=== PATIENT | female | born 1975 | race Two or more races ===

== ENCOUNTER 2017-01-05 00:05 | Emergency (ER) | payer OTHER, SELFPAY ==
[~2017-01-05 00:05] MED LIST: ALBUTEROL SULF8.5 GM IH; ALBUTEROL17 GM; ALBUTEROL17 GM INH; ANUSOL-HC25 MG/SUPP RC; CIPRO500 MG PO; CLARITIN10 MG PO; FLEXERIL10 MG PO; LANTUS100 U/ML SC; LEVEMIR100 U/ML SQ; LORTAB 5/500 TA1 TAB PO; METFORMIN HCL850 MG PO; MOTRIN600 MG PO; MOTRIN800 MG PO; NORCO 5/325 TAB1 TAB PO; PERCOCET 5/3251 TAB PO; ZOFRAN4 MG PO
[2017-01-05 00:56] LABS: BASO % 0.2 % (0-2); EOS % 1.9 % (0-7); EOSINOPHIL ABSOLUTE COUNT 0.2 tho/cmm (0.0-0.7); HCT-HEMATOCRIT 40.5 % (34.0-49.0); HGB-HEMOGLOBIN 13.9 gm/dl (12.0-15.5); IMMATURE GRANULOCYTES ABSOLUTE 0.03 tho/cmm (0-0.03); IMMATURE GRANULOCYTES PERCENT 0.4 % (0-0.3); LYMPH ABSOLUTE COUNT 3.8 tho/cmm (0.8-4.5); MCH (MEAN CORPUSCULAR HGB) 29.8 pg (28.0-32.0); MCHC MEAN CORPUSCULAR HGB CONC 34.3 % (32.0-36.0); MCV (MEAN CELL VOLUME) 86.9 fl (82.0-96.0); MEAN PLATELET VOLUME 11.5 cmc (9.4-12.4); MONO % 4.6 % (0-12); MONOCYTE ABSOLUTE COUNT 0.4 tho/cmm (0.0-1.2); NEUTROPHIL ABSOLUTE COUNT 3.9 tho/cmm (1.6-8.0); NEUTROPHIL-AUTOMATED 3.9 tho/cmm (1.6-8.0); NEUTROPHILS % 46.9 % (40-80); PLATELET COUNT 158 tho/cmm (150-450); RED BLOOD COUNT 4.66 mil/cmm (4.00-5.20); RED CELL DISTRIBUTION WIDTH 13.1 % (12.4-16.4); WHITE BLOOD COUNT 8.3 tho/cmm (4.0-10.0)
[2017-01-05 00:59] LABS: KETONE-BETA (WHOLE BLOOD) 0.1 mmol/L (0.0-0.6)
[2017-01-05 01:02] LABS: URINE BILIRUBIN NEGATIVE (NEG); URINE BLOOD NEGATIVE (NEG); URINE GLUCOSE (UA) LARGE (NEG); URINE KETONE NEGATIVE (NEG); URINE LEUKOCYTE ESTERASE POSITIVE (NEG); URINE NITRITE NEGATIVE (NEG); URINE PROTEIN SMALL (NEG); URINE SPECIFIC GRAVITY 1.015 (1.003-1.030)
[2017-01-05 01:11] LABS: ANION GAP 13 mmol/L (0-20); BLOOD UREA NITROGEN 19 mg/dl (6-24); CALCIUM 8.7 mg/dl (8.5-10.5); CARBON DIOXIDE-VENOUS 24 mmol/L (22-32); CHLORIDE 102 mmol/l (96-110); CREATININE 0.98 mg/dl (0.50-1.10); GLUCOSE 320 mg/dL (70-110); SODIUM 135 mmol/L (135-145); eGFR VALUE FOR BLACK 84 mL/Min
[2017-01-05 01:12] LABS: URINE APPEARANCE CLOUDY; URINE COLOR YELLOW
[2017-01-05 01:18] LABS: URINE RBC 0 /[HPF] (0-5)
[2017-01-05 01:19] LABS: URINE BACTERIA 2+; URINE EPITHELIAL CELLS 0-3 /[HPF] (0-10)
[2017-01-05 01:29] LABS: POTASSIUM 3.9 mmol/L (3.7-5.1)
[2017-01-05] MEDS ORDERED: MACROBID 100 M100 M1 PO (01:32)
[2017-01-05] MEDS ORDERED: ZOFRAN ODT4 MG PO (01:32)
== END 2017-01-05 02:51 ==
LOC: EDMED 00:05
PROVIDERS: Emergency Medicine
DX: E11.65 Type 2 diabetes mellitus with hyperglycemia (principal); N39.0 Urinary tract infection, site not specified; Z79.899 Other long term (current) drug therapy
CPT/HCPCS: J2405; J7030